=== PATIENT | male | born 1940 | race Caucasian/White ===

== ENCOUNTER → 2016-08-26 | Outpatient (REF) | payer MEDICARE | LOC: M LAB REF 15:00 | PROVIDERS: ATTEND Internal Medicine Pulmonary Disease | DX: R91.8 Other nonspecific abnormal finding of lung field (principal) ==

== ENCOUNTER → 2016-09-16 | Day surgery (SDC) | payer OTHER ==
[~2016-09-16] VITALS: Ht 180.3 cm; Wt 78.5 kg
[~2016-09-16] MED LIST: AMLO10TA2 PO; ASPI81TA85 PO; ATOR1TAB21 PO; AUGM875T28 PO; CARV6.25 PO; CARVedilol 6.25 MG TAB PO ONE; CETACAINE SPRAY 20GM (FLOOR STOCK) As Ordered ONE; DOXY-278 PO; EPINEPHrine 1MG/10ML SYRINGE 1.5IN As Ordered ONE; FINA5TAB2 PO; FLOM5CAP PO; LASI20TA PO; LIDOCAINE 1% SDV INJ 30 ML VIAL As Ordered ONE; LIDOCAINE 2% INJ 100 MG/5 ML SDV (FOR ANES.) As Ordered ONE; LIDOCAINE 2% JELLY 30 ML As Ordered ONE; LIDOCAINE VISCOUS 2% SOLN 15ML UDC As Ordered ONE; LOSA25TA8 PO; LR 1,000 ML IV ONE; LR 1,000 ML IV SCH; MIDAZOLAM INJ 2 MG/2 ML VIAL (J2250) As Ordered ONE; ONDANSETRON 4MG/2ML VIAL (J2405) IV PRN; PROPOFOL 200 MG/20 ML VIAL As Ordered ONE; ROCURONIUM BROMIDE 50 MG/5 ML VIAL/SYRINGE As Ordered ONE; THROMBIN SOLN 20,000 UNITS KIT As Ordered ONE; fentaNYL 100 MCG/2 ML INJECTION (J3010) As Ordered ONE; fentaNYL 100 MCG/2 ML INJECTION (J3010) IV PRN
--- NOTE | 2016-09-16 09:13 | RO ---
DATE OF PROCEDURE: 09/16/2016 PREOPERATIVE DIAGNOSIS: Left upper lobe mass. Abnormal chest CT. Right upper lobe nodule. POSTOPERATIVE DIAGNOSIS: Left upper lobe mass. Abnormal chest CT. Right upper lobe nodule. FINDINGS: Obstructing left upper lobe lesion. PROCEDURE: Bronchoscopy with attempted electromagnetic navigation. SURGEON: Dr. Tello Wallace DEAL[employer] SALES MANAGER: None. ANESTHESIA: General. SPECIMENS OBTAINED: 1. Cytology brush left upper lobe. 2. Endobronchial biopsies left upper lobe. 3. Bronchoalveolar lavage left upper lobe. ESTIMATED BLOOD LOSS: 5 mL. DESCRIPTION OF PROCEDURE: After informed consent was reviewed with the patient in the preoperative area he was brought back to the operating room (OR). A time-out was performed with two patient identifiers, identifying correct site and correct procedure. General anesthesia was initiated with an 8.5 endotracheal tube. After adequate sedation, the case was handed over to me. A time-out again was performed with two patient identifiers, identifying correct site and correct procedure. The T-190 bronchoscope was then introduced through the endotracheal tube with Cetacaine spray. All airways were suctioned. Trachea was midline. Mer was sharp. Right mainstem was normal. Left mainstem was also normal. RB 1-10 was normal without endobronchial lesions except for banding and pitting. LB 1-5 was completely obstructed with tumor. At the spur between the left upper lobe and lower left lower lobe, the tumor was present up to the spur and seemed to be involving some of the spur. There were no endobronchial lesions within the left upper lobe LB 6-10. There was at least 2 cm of left mainstem bronchus before you came into the tumor. Cytology brushing was then performed of the left upper lobe lesion. This was followed by multiple endobronchial forceps biopsies. After adequate sampling, bronchoalveolar wash was done and hemostasis was assured. Navigation was then attempted for the right upper lobe very peripheral lesion. Automatic registration was performed easily. I navigated to the right upper lobe lesion. I was not within an adequate distance and this was a very peripheral lesion; therefore, no biopsies were performed. The patient's airways were then resuctioned and the bronchoscope was removed. The case was handed back over to anesthesia. The patient was extubated. A postprocedure chest x-ray is pending. So far, no observed complications. [facility]
[2016-09-16 10:10] VITALS: BP 196/95
--- NOTE | 2016-09-16 10:26 | REP ---
PORTABLE CHEST: AP portable view of the chest is performed. Left upper lobe opacity is noted without evidence of pneumothorax. Heart appears somewhat enlarged. There is calcification and tortuosity of the thoracic aorta. Signed by Oscar Steve MD 09/16/2016 05:07 P
== END | disposition home or self-care (01) ==
LOC: M SDC 05:53
PROVIDERS: ATTEND Internal Medicine Pulmonary Disease
DX: C34.12 Malignant neoplasm of upper lobe, left bronchus or lung (principal); I10 Essential (primary) hypertension; E78.5 Hyperlipidemia, unspecified; N40.0 Benign prostatic hyperplasia without lower urinary tract symptoms; Z87.891 Personal history of nicotine dependence; Z79.82 Long term (current) use of aspirin; Z79.899 Other long term (current) drug therapy
CPT/HCPCS: 31623; 31624; 31628; 71010; 76000; 88104; 88108; 88172; 88173; 88305; 88313; 88341; 88342; J2250; J3010

== ENCOUNTER → 2018-12-16 | Outpatient (REF) | payer OTHER ==
[~2018-12-16] MED LIST changes: -AMLO10TA2 PO; +AMLO10TA5 PO; -CARVedilol 6.25 MG TAB PO ONE; -CETACAINE SPRAY 20GM (FLOOR STOCK) As Ordered ONE; -DOXY-278 PO; +DOXY-350 PO; -EPINEPHrine 1MG/10ML SYRINGE 1.5IN As Ordered ONE; +FLOM0.4C39 PO; -FLOM5CAP PO; -LASI20TA PO; +LASI20TA3 PO; -LIDOCAINE 1% SDV INJ 30 ML VIAL As Ordered ONE; -LIDOCAINE 2% INJ 100 MG/5 ML SDV (FOR ANES.) As Ordered ONE; -LIDOCAINE 2% JELLY 30 ML As Ordered ONE; -LIDOCAINE VISCOUS 2% SOLN 15ML UDC As Ordered ONE; +LOSA25TA14 PO; -LOSA25TA8 PO; -LR 1,000 ML IV ONE; -LR 1,000 ML IV SCH; -MIDAZOLAM INJ 2 MG/2 ML VIAL (J2250) As Ordered ONE; -ONDANSETRON 4MG/2ML VIAL (J2405) IV PRN; -PROPOFOL 200 MG/20 ML VIAL As Ordered ONE; -ROCURONIUM BROMIDE 50 MG/5 ML VIAL/SYRINGE As Ordered ONE; -THROMBIN SOLN 20,000 UNITS KIT As Ordered ONE; -fentaNYL 100 MCG/2 ML INJECTION (J3010) As Ordered ONE; -fentaNYL 100 MCG/2 ML INJECTION (J3010) IV PRN
== END ==
LOC: M LAB REF 09:25
DX: C34.90 Malignant neoplasm of unspecified part of unspecified bronchus or lung (principal); R91.1 Solitary pulmonary nodule; C34.12 Malignant neoplasm of upper lobe, left bronchus or lung

== ENCOUNTER → 2019-01-14 | Outpatient (CLI) | payer MEDICARE ==
--- NOTE | 2019-01-14 20:53 | REP ---
Clinical: Urinary retention. Technique: Real time polo scale ultrasound examination using curved array transducer. Findings: A Villarreal catheter is identified within the bladder. On examination the bladder measures 46 ml without significant wall thickening or obvious mass lesion. Ureteral jets were not identified. The prostate gland is heterogeneous and measures 4.5 x 2.9 x 3.5 cm (24 ml). Impression: Prostate gland at 24 ml without significant mass effect on the base of the bladder noted. Electronically Signed by Gideon Foley MD 01/14/2019 08:44 P
== END ==
LOC: M RAD 12:11
PROVIDERS: ATTEND Nurse Practitioner Women's Health
DX: N28.9 Disorder of kidney and ureter, unspecified (principal)